=== PATIENT | female | born 1990 | race African-American/Black ===

== ENCOUNTER 2023-06-29 19:21 | Emergency (ER) | payer MEDICAID ==
[~2023-06-29] VITALS: Ht 157.5 cm; Wt 68.2 kg
[2023-06-29 19:32] VITALS: BP 117/69; PULSE 85; RESP 18; TEMP 98
[2023-06-29 20:21] LABS: APPEARANCE,URINE HAZY (CLEAR); BILIRUBIN,URINE NEGATIVE (NEGATIVE); GLUCOSE, URINE (UA) NEGATIVE (NEGATIVE); KETONES,URINE NEGATIVE (NEGATIVE); LEUKOCYTE ESTERASE ,URINE MODERATE (NEGATIVE); NITRATE,URINE NEGATIVE (NEGATIVE); OCCULT BLOOD,URINE LARGE (NEGATIVE); PROTEIN,URINE TRACE mg/dL (NEGATIVE); SPECIFIC GRAVITIY, URINE 1.019 (1.003-1.030); UROBILINOGEN,URINE <=1.0 mg/dL (<=1.0)
[2023-06-29 20:51] LABS: BACTERIA,URINE None Seen /HPF (None Seen)
== END 2023-06-29 22:32 | disposition left against medical advice (07) ==
LOC: EMS 19:25
DX: M54.50 Low back pain, unspecified (principal); Z53.21 Procedure and treatment not carried out due to patient leaving prior to being seen by health care provider
CPT/HCPCS: 81001; 87491; 87591; 99281; Z7502